=== PATIENT | male | born 1990 ===

== ENCOUNTER 2019-05-04 18:12 | Emergency (ER) | payer MEDICAID, OTHER ==
[~2019-05-04] VITALS: Ht 188 cm; Wt 92.0 kg
[2019-05-04 18:13] VITALS: BP 128/72
--- NOTE | 2019-05-04 18:29 | NUR ---
PT WITH MOUTH PAIN FOR 2 DAYS, PT ALSO REPORTS FEVERS. PT IN A REHAB CURRENTLY AND STATES HE WAS UNABLE TO GET LOOKED AT. ERMD IN TO SEE PT
--- NOTE | 2019-05-04 19:06 | NUR ---
Pt d/c'd to [facility]. Pt alert, oriented and ambulatory at time of d/c. Pt educated on home meds, home care, prescriptions and follow-up. Pt VU. Pt ambulated out of ER.
== END 2019-05-04 19:08 ==
LOC: ED 19:02
DX: K02.9 Dental caries, unspecified (principal); R50.9 Fever, unspecified
CPT/HCPCS: 99283